=== PATIENT | female | born 1975 | race Caucasian/White ===

== ENCOUNTER 2018-02-12 07:36 | Emergency (ER) | payer MEDICAID ==
[~2018-02-12] VITALS: Ht 175.3 cm; Wt 93.2 kg
[2018-02-12 07:42] VITALS: Ht 175.3 cm; Wt 93.2 kg
[2018-02-12 08:38] VITALS: BP 118/72
== END 2018-02-12 08:38 | disposition home or self-care (01) ==
LOC: D.ER 07:36
DX: S40.011A Contusion of right shoulder, initial encounter (principal); X58.XXXA Exposure to other specified factors, initial encounter; Y93.89 Activity, other specified; Y92.019 Unspecified place in single-family (private) house as the place of occurrence of the external cause; L02.611 Cutaneous abscess of right foot; F17.200 Nicotine dependence, unspecified, uncomplicated

== ENCOUNTER 2018-04-25 11:47 | Day surgery (SDC) | payer MEDICAID ==
[2018-04-22 11:25] LABS: BASOPHILS 0.5 % (0-2); HEMATOCRIT 42.9 % (36.0-48.0); HEMOGLOBIN 14.3 g/dL (12-16); IMMATURE GRANULOCYTES 0.3 % (0-5); LYMPHOCYTES 32.7 % (15-50); MCH 30.9 pg (26.0-34.0); MCHC 33.3 g/dL (31.0-37.0); MCV 92.7 fL (80.0-100.0); NEUTROPHILS 55.5 % (40-80); PLATELET COUNT 302 10x3/uL (130-400); RBC 4.63 10x6/uL (4.00-5.40); WBC 7.8 10x3/uL (4.8-10.8)
[2018-04-22 11:41] LABS: CALC OSMOLALITY 281 mosm/kg (275-300); CALCIUM 8.8 mg/dL (8.5-10.1); CARBON DIOXIDE 25.7 mmol/L (21.0-32.0); CHLORIDE - SERUM 105 mmol/L (98-107); CREATININE - SERUM 0.8 mg/dL (0.6-1.3); GLUCOSE 106 mg/dL (74-106); POTASSIUM - SERUM 4.3 mmol/L (3.5-5.1); SODIUM 141 mmol/L (136-145); UREA NITROGEN 15 mg/dL (7-18); eGFR NON AFRICAN AMERICAN 83 mL/min (90-120)
[~2018-04-25] VITALS: Ht 152.4 cm; Wt 99.8 kg
[2018-04-25] VITALS (11 sets, daily range): BP systolic 104–120; BP diastolic 63–76; Ht 152.4 cm; Wt 99.8 kg
[2018-04-25] MEDS ORDERED: VITAMIN D250000 UNIT PO (12:38)
[2018-04-25] MEDS ORDERED: BC (12:39)
[2018-04-25 13:07] LABS: HCG URINE NEGATIVE (NEGATIVE)
--- NOTE | 2018-04-25 20:29 | NUR ---
1930 PT REC'D TO ROOM AT THIS TIME FROM RECOVERY. IV SITE TO THE LFT HAND. SITE CLEAR AND PATENT AT THIS TIME. LUNGS CLEAR BOWERL SOUND PRESENT BUT HYPOACTIVE. INCISIONS X3 TO ABDOMEN. NO DRAINAGE NOTED. PT ALERT AND ORIENTED. KEARNEY CATH PATNET WITH YELLOW URINE NOTED. PT ORIENTED TO ROOM AND CALL LIGHT. SIDERILS UP FOR SAFETY X2. CALL LIGHT IN PT REACH. Bharat NASCIMENTO RN
--- NOTE | 2018-04-25 20:30 | NUR ---
SITTING UP IN BED TALKING TO SPOUSE. VSS. ENCOURAGED DEEP BREATHING AND DONE BY PT. PT REQUESTED CHICKEN BROTH AND SPRITE. CHICKEN BROTH AND SPRITE GIVEN. PT ATE ORANGE JELLO AND HAD ICE CHIPS AT 1955 AND TOLERATED WELL.
--- NOTE | 2018-04-25 20:33 | NUR ---
2019 PT VISITING WITH FAMILY AT THIS TIME CLEAR LIQUID OFFERED AT THIS TIME. STATES THAT PAIN IS 7. LAUGHING AND SOCIALICING WITH FAMILY. WILL CONTINUE TO MONITOR. VSS. SIDERAILS UP FOR SAFETY X2. CALL LIGHT IN PT REACH. Bharat NASCIMENTO RN
--- NOTE | 2018-04-25 21:34 | NUR ---
SPOKE WITH DR AMAYA REGARDING PT; ORDERS RECEIVED TO NORMALIZE PT, OKAY TO DC KEARNEY, CONVERT IV TO SALINE LOCK, AMBULATE IN HALLS, ADVANCE DIET TOLERATED TO REGULAR DIET BY BREAKFAST, CONFIRMED VIA TORB AND RELAYED TO Nadya NASCIMENTO RN WHO IS PCN FOR PT.
--- NOTE | 2018-04-25 22:01 | NUR ---
IV IN LEFT HAND CONVERTED TO SALINE LOCK AND SECURED WITH TAPE, KEARNEY CATHETER DC'D, PT OOB AND AMBULATORY IN ROOM, TOLERATING PO FLUIDS WELL WITHOUT N/V, DENIES OTHER NEEDS AT THIS TIME. RESP EVEN AND UNLABORED, FAMILY TO ROOM, CONTINUE TO MONITOR.
--- NOTE | 2018-04-25 22:21 | NUR ---
PT CALLS, C/O PAIN, RATES 10/03, REQUESTS MEDICATION. 1 TAB PERCOCET 5 PROVIDED TO PT AT THIS TIME. ADDITIONAL SPRITE AND JELLOW PROVIDED TO PT. PT DENIES ANY FURTHER NEEDS. BED IN LOW POSITION, SIDE RAILS UP TIMES 2, CALL LIGHT AND PHONE IN REACH. FAMILY TIMES 3 REMAINS AT PT BS FOR SUPPORT AND ASSISTANCE. WILL CONT TO MONITOR PT STATUS.
--- NOTE | 2018-04-25 23:30 | NUR ---
1130 VITAL SIGNS STABLE AT THIS TIME. DEEP BREATHING AND COUGHING DONE AT THIS TIME. PT PAIN LEVEL STATES 5 DROWSY AT THIS TIME. PT PROVIDED WITH PUDDING AT THIS TIME. NO NAUSEA/VOMITING NOTED. SALINE LOCK TO THE LEFT HAND. SCDS. IN PLACE. Bharat NASCIMENTO RN
--- NOTE | 2018-04-26 00:43 | NUR ---
0040 PT COMPLAINS OF NAUSEA AND WAS MEDICATED WITH PHENERGAN 25 MG IM. WILL MONITOR PROGRESS. Bharat NASCIMENTO RN
[2018-04-26 03:40] VITALS: BP 126/78
--- NOTE | 2018-04-26 03:41 | NUR ---
0340 PT RECEIVED IN BED AWAKE AT THIS TIME. DENIES PAIN. SALINE LOCK TO THE LFT HAND. INCISIONS X3 TO THE ABDOMEN WITHOUT S/S OF INFECTION NOTED. MEDICATED THIS SHIFT X1 FOR NAUSEA WITH RELIEF NOTED. TOLERATING REGULAR DIET THIS SHIFT. NO ACUTE DISTRESS NOTED. AFEBRILE. SIDERAIL UP FOR SAFETY X2. CALL LIGHT INM EASY REACH. Bharat NASCIMENTO RN
--- NOTE | 2018-04-26 05:42 | NUR ---
0540 PT ASLEEP AT THIS TIME. RESTING WELL. NO ACUTE DSITRESS NOTED. Bharat NASCIMENTO RN
--- NOTE | 2018-04-26 07:06 | NUR ---
BEDSIDE REPORT RCVD. PT RESTING WITH EYES CLOSED, RESP EVEN & UNLABORED. PT LEFT UNDISTURBED AT THIS TIME.
[2018-04-26 08:30] VITALS: BP 103/58
--- NOTE | 2018-04-26 08:30 | NUR ---
PT SITTING UP IN BED WITH GUESTS IN ROOM X2. REGULAR MEAL TRAY SERVED. PT C/O PAIN 01/03 IN ABD, SPECIFICALLY IN UPPER ABD CONSISTENT WITH GAS PAINS. EDU PT ON AMB IN HALLS. PT STATES "I'VE BEEN TO THE BATHROOM SEVERAL TIMES." ADV PT THAT AMB IN HALLS ALLOWS MORE DISTANCE TO GET GAS TO MOVE AND AIDS IN BOWEL ACTIVITY. PT VERBALIZES UNDERSTANDING. NEURONTIN 300 MG X1 TAB AND SCHEDULED TORADOL 10 MG X1 TAB GIVEN AT THIS TIME. SHIFT ASSESSMENT COMPLETED. HR-RRR, PPP, SL TO LT HAND REPORTEDLY "CAME OUT." NO BLEEDING NOTED TO SITE AT THIS TIME. BREATH SOUNDS CLEAR & UNLABORED X2, BOWEL SOUNDS ACTIVE X4. LAP INCISION NOTED AT UMBILICUS, LLQ AND RLQ. C/D/I WITHOUT ERYTHEMA OR EDEMA NOTED TO SITES. PT REPORTS "SPOTTING" WHEN VOIDING, BUT NO CONSISTENT VAGINAL BLEEDING. DENIES PASSING GAS AT THIS TIME. DENIES N/V. DENIES FURTHER NEEDS AT THIS TIME. BED LOW, WHEELS LOCKED, CALL LIGHT AND PHONE WITHIN REACH, SIDE RAILS UP X2.
--- NOTE | 2018-04-26 09:12 | NUR ---
PAIN REASSESSMENT COMPLETE. PT RATES PAIN 6/10 AND IS SITTING UP IN BED SCROLLING ON CELL PHONE. OFFERED PERCOCET. PT DESIRES TO TAKE 1 TAB OF PERCOCET 5/325MG AT THIS TIME. SAME PROVIDED. ADV PT TO AMB IN HALLS X3 TODAY TO AVOID GAS PAINS. PT VERBALIZED UNDERSTANDING AND IS AGREEABLE. NO FURTHER NEEDS VOICED AT THIS TIME.
--- NOTE | 2018-04-26 10:33 | OP ---
PATIENT NAME: PHILL ANDREWS MEDICAL RECORD: [id number] :77 [id number] ADMISSION DATE: SURGEON: FROYLAN AMAYA MD DATE OF OPERATION: 04/25/2018 PREOPERATIVE DIAGNOSES: 1. Dysfunctional uterine bleeding. 2. Dysmenorrhea. 3. Hematometrium. POSTOPERATIVE DIAGNOSES: 1. Dysfunctional uterine bleeding. 2. Dysmenorrhea. 3. Hematometrium. PROCEDURE: 1. Diagnostic laparoscopy. 2. Lysis of adhesions. 3. Laparoscopically assisted vaginal hysterectomy with bilateral salpingo-oophorectomy. SURGEON: Froylan Amaya MD ANESTHESIOLOGIST: Dr. Ellison. GLASS PRESSER: Crispin Pierre. ANESTHESIA: General. FINDINGS: Uterus is enlarged and boggy. Uterus and ovaries bilaterally are unremarkable. What was visualized of the abdominal anatomy and cervical anatomy was unremarkable. SPECIMENS REMOVED: Uterus with cervix, bilateral tubes and ovaries. SPECIMEN DISPOSITION: All specimens to pathology. ESTIMATED BLOOD LOSS: 500 cc. FLUIDS: 2 liters lactated Ringer's. URINE OUTPUT: 550 cc of clear urine. COMPLICATIONS: None. DRAINS: Patton to gravity. INDICATIONS: The patient is a 43-year-old female status post uterine ablation. The patient has continued bleeding irregularities and severe dysmenorrhea. On ultrasound, large fluid cavity contained within the uterus. These findings with history consistent with possible hematometrium. DESCRIPTION: The patient is consented for bilateral salpingo-oophorectomy and total hysterectomy. OPERATIVE REPORT [id number] PHILL ANDREWS DESCRIPTION OF PROCEDURE: After informed consent was assured, the patient was taken to the operating room where anesthetic was obtained. [facility] and prepped and draped. A speculum was introduced into the vagina and a uterine manipulator placed. Attention was now directed in to the abdomen after prepping and draping where an incision was made at the umbilicus to accommodate a 5-mm trocar, which was inserted without difficulty. Pneumoperitoneum was developed. Immediately, adhesions were noted of the anterior peritoneum to the anterior surface of the uterus. Both ovaries and tubes were unremarkable and uterus appears as stated above. Attention was directed to the right adnexa where the attachment of the right ovary to the pelvic sidewall has the dissection began underneath the right tube and above the ovary. The dissection was carried out underneath the right tube across the uteroovarian ligament and down across the round ligament. The anterior leaf of the broad ligament was opened to the midline. Dense adhesions were encountered at the bladder and these are taken down to the midline. Attention is directed out to the posterior aspect of the ligament where the connective tissue was taken down and the vessels of the right side skeletonized. The vessels were compressed, coagulated, and then . Attention was now directed to the left. The left ovary and tube was elevated and using coagulation cutter, the vessels of the infundibulopelvic ligament were compressed, coagulated, and . The dissection was carried down underneath the ovary and tube across the round ligament and the anterior leaf of the broad ligament was opened. As dissection was carried out towards the lower segment again dense adhesions were encountered and these were taken down with both coagulation cutter and Harmonic scalpel. Once the bladder flap was mobilized, attention is directed back to the left vascular bundle where the vessels were identified compressed, coagulated, and . With uterine manipulation being limited by the size of the uterus and difficulty in reaching the cup, it was decided to move to complete the procedure for the vaginal approach. The patient's legs were positioned and a speculum introduced the vagina. The cervix grasped with Hearn tenaculums and placed on traction. The cervix was circumferentially incised with Bovie cautery. The posterior cul-de-sac was entered with Talley scissors and a stitch applied to the peritoneum. The opening is widened and a long-billed weighted speculum was introduced. Nida-Van Wert clamps used to isolate the right and left uterosacral ligaments. These pedicles were mobilized and stick tied. Dissection anteriorly was completed with both Bovie cautery and Metzenbaum scissors. Once the anterior pouch was entered and the [place] retractor was placed here to deflect the bladder above the area of dissection. The remaining portions of the attachment of the uterus to the cardinal ligaments were serially clamped, cut and tied. Once the uterus fills the hole of the vagina, a scalpel was used to morcellate and collapse the uterus until it is removed from the pelvis. The vaginal vault was now closed in an anterior to posterior fashion with interrupted [id number] Vicryl stitches. Once this was completed, pneumoperitoneum was reestablished and the pelvis irrigated. Bleeding vessels on the right and left peritoneum were identified, collapsed and cauterized. The right ovary which was previously described attached to the right pelvic sidewall was now dissected free with Harmonic scalpel and coagulation cutter. Once the ovary was mobilized, infundibulopelvic ligaments were compressed, coagulated, and . The ovary and portion of tube was placed in an Endobag and removed. Pelvis again was irrigated and irrigant removed. Given the broad range of dissection of the adhesions anteriorly, the raw edges are covered with Surgicel powder. After completion of this process, the pneumoperitoneum was released. Trocars were removed and the skin sites were approximated with subcuticular stitch. Dermabond was applied. Sponge, lap, and needle counts correct times 2 at the close of this procedure. OPERATIVE REPORT [id number] PHILL ANDREWS TRANSINT:[id number] Voice Confirmation ID: [id number] DOCUMENT ID: [id number] FROYLAN AMAYA MD at 1033 CC: [id number] DICTATION DATE: 04/25/181806 HYGIENE TEACHER: 04/26/18 0203 [facility] [address] [place] [address]
[2018-04-26 10:49] LABS: BASOPHILS 0 % (0-2); EOSINOPHILS 0.1 % (0-7); HEMATOCRIT 37.8 % (36.0-48.0); HEMOGLOBIN 12.4 g/dL (12-16); IMMATURE GRANULOCYTES 0.2 % (0-5); LYMPHOCYTES 15.1 % (15-50); MCH 30.7 pg (26.0-34.0); MCHC 32.8 g/dL (31.0-37.0); MCV 93.6 fL (80.0-100.0); MEAN PLATELET VOLUME 10.7 fL (7.4-10.4); MONOCYTES 9.9 % (2-11); NEUTROPHILS 74.7 % (40-80); PLATELET COUNT 310 10x3/uL (130-400); RBC 4.04 10x6/uL (4.00-5.40); RDW 13.9 % (11.5-14.5); WBC 11.2 10x3/uL (4.8-10.8)
--- NOTE | 2018-04-26 11:17 | NUR ---
CALL RCVD FROM DR AMAYA. REPORT GIVEN ON LAB RESULT. T/O RCVD TO D/C PT HOME WITH INST
--- NOTE | 2018-04-26 11:43 | NUR ---
RN TO BEDSIDE FOR D/C INSTRUCTIONS. PT OFF UNIT AT THIS TIME. ADV FAMILY IN ROOM TO HAVE PT RING CALL LIGHT WHEN BACK FOR D/C INST.
--- NOTE | 2018-04-26 11:54 | NUR ---
PT BACK TO ROOM. RN TO BEDSIDE. D/C INSTRUCTIONS EXPLAINED, SIGNED, AND WITNESSED. PRESCRIPTIONS, FOLLOW UP APPT AND COPY OF INSTRUCTIONS PROVIDED TO PT. PT REQUESTS TO STAY UNTIL AFTER LUNCH AND TO HAVE PERCOCET BEFORE D/C TO HOME. ADV PT THAT NEXT PERCOCET WILL BE AVAILABLE AT 1315. PT VERBALIZED UNDERSTANDING. DENIES FURTHER QUESTIONS OR CONCERNS AT THIS TIME. WILL CONTINUE TO MONITOR PRN.
--- NOTE | 2018-04-26 12:49 | NUR ---
PERCOCET 5/325MG X1 TAB GIVEN FOR PAIN RATED 7/10. PT READY TO D/C TO HOME. PT TRANSPORTED OFF UNIT VIA W/C TO AWAITING RIDE.
--- NOTE | 2018-04-29 17:16 | DS ---
PATIENT:PHILL ANDREWS :77 MEDICAL RECORD: [id number] DISCHARGE SUMMARY ADMISSION DATE: 04/25/18 DISCHARGE DATE: 04/26/18 PREOPERATIVE DIAGNOSES: 1. Dysmenorrhea. 2. Dysfunctional uterine bleeding. 3. Hematometrium. DISCHARGE DIAGNOSES: 1. Dysmenorrhea. 2. Dysfunctional uterine bleeding. 3. Hematometrium. PROCEDURE: Laparoscopically assisted vaginal hysterectomy. ATTENDING: Dr. Amaya HISTORY OF PRESENT ILLNESS: See the H&P in the chart. SUMMARY OF HOSPITALIZATION: The patient was admitted to the hospital and underwent procedure without difficulty. By the hospital day #1, the patient has already normalized, voiding without difficulty, and tolerating a regular diet. The patient has adequate pain control. The patient will be discharged on Percocet, Mobic, and Neurontin. The patient has been given a followup appointment in 2 weeks. Postoperative precautions have been reviewed with the patient at length. The patient will be discharged home, pending drawing of hematocrit. TRANSINT:[id number] Voice Confirmation ID: [id number] DOCUMENT ID: [id number] SUGEY AMAYA MD at 1716 CC: [id number] DICTATION DATE: 04/26/18 1034 HEAD OF OPERATION AND LOGISTICS: 04/26/18 2229 [facility] 04/26/[address] [address]
== END 2018-04-26 12:49 | disposition home or self-care (01) ==
LOC: D.OPS 11:47 → D.PAN 13:10 → D.OPS 13:30 → D.LD 19:17 → D.OPS 04-26 12:49
PROVIDERS: Obstetrics & Gynecology
DX: N93.8 Other specified abnormal uterine and vaginal bleeding (principal); N94.6 Dysmenorrhea, unspecified; N85.7 Hematometra; N83.01 Follicular cyst of right ovary; Z01.812 Encounter for preprocedural laboratory examination

== ENCOUNTER 2018-05-06 17:57 | Emergency (ER) | payer MEDICAID ==
[~2018-05-06] VITALS: Ht 175.3 cm; Wt 97.7 kg
[~2018-05-06 17:57] MED LIST: BC; VITAMIN D250000 UNIT PO
[2018-05-06 18:23] VITALS: Ht 175.3 cm; Wt 97.7 kg
[2018-05-06] MEDS ORDERED: MOBIC7.5 MG (18:24)
[2018-05-06] MEDS ORDERED: ESTRACE 0.5 MG0.5 MG PO (18:25)
[2018-05-06 19:49] LABS: BASOPHILS 0.4 % (0-2); EOSINOPHILS 6.9 % (0-7); HEMATOCRIT 40.3 % (36.0-48.0); HEMOGLOBIN 13.1 g/dL (12-16); IMMATURE GRANULOCYTES 0.4 % (0-5); LYMPHOCYTES 31.5 % (15-50); MCH 30.3 pg (26.0-34.0); MCHC 32.5 g/dL (31.0-37.0); MCV 93.3 fL (80.0-100.0); MEAN PLATELET VOLUME 10.8 fL (7.4-10.4); MONOCYTES 5.3 % (2-11); NEUTROPHILS 55.5 % (40-80); PLATELET COUNT 344 10x3/uL (130-400); RBC 4.32 10x6/uL (4.00-5.40); RDW 13.5 % (11.5-14.5)
[2018-05-06 20:18] LABS: ALBUMIN 3.6 g/dL (3.4-5.0); ANION GAP 12.8 mmol/L (8-16); BILIRUBIN - TOTAL 0.22 mg/dL (0.2-1.3); CALCIUM 9.6 mg/dL (8.5-10.1); CARBON DIOXIDE 27.8 mmol/L (21.0-32.0); CREATININE - SERUM 0.9 mg/dL (0.6-1.3); POTASSIUM - SERUM 3.6 mmol/L (3.5-5.1); PROTEIN - SERUM 8.2 g/dL (6.4-8.2)
[2018-05-06 21:04] LABS: INR 0.86 (0.85-1.17); PROTIME 11.2 SECONDS (11.6-15.0)
[2018-05-06 21:06] LABS: APTT 25.2 SECONDS (22.8-39.4)
[2018-05-06 21:38] LABS: APPEARANCE HAZY (CLEAR); COLOR YELLOW (YELLOW); SPECIFIC GRAVITY 1.015 (1.005-1.020)
[2018-05-06 21:39] LABS: BILIRUBIN NEGATIVE (NEGATIVE); GLUCOSE NEGATIVE (NEGATIVE); KETONE NEGATIVE (NEGATIVE); NITRITE NEGATIVE (NEGATIVE); PROTEIN TRACE mg/dL (NEGATIVE); UROBILINOGEN NORMAL (NORMAL)
[2018-05-06 21:40] LABS: BACTERIA FEW /hpf (NONE SEEN); EPITHELIAL CELLS 0-5 /hpf (0-5); WHITE CELLS - URINE 0-5 /hpf (0-5)
[2018-05-06 21:41] LABS: RED CELLS - URINE >50 /hpf (0-5)
[2018-05-06] MEDS ORDERED: ZOFRAN ODT4 MG/UDTAB PO (22:50)
[2018-05-06 23:03] VITALS: BP 129/66
== END 2018-05-06 23:03 | disposition home or self-care (01) ==
LOC: D.ER 17:57
PROVIDERS: Family Medicine
DX: N99.820 Postprocedural hemorrhage of a genitourinary system organ or structure following a genitourinary system procedure (principal); F17.200 Nicotine dependence, unspecified, uncomplicated

== ENCOUNTER 2018-06-18 07:48 | Emergency (ER) | payer MEDICAID ==
[~2018-06-18] VITALS: Ht 175.3 cm; Wt 97.7 kg
[~2018-06-18 07:48] MED LIST changes: +ESTRACE 0.5 MG0.5 MG PO; +MOBIC7.5 MG; +ZOFRAN ODT4 MG/UDTAB PO
[2018-06-18 07:57] VITALS: BP 149/80; Ht 175.3 cm; Wt 97.7 kg
[2018-06-18] MEDS ORDERED: ACETAMINOPHEN500 M1 PO (08:25)
[2018-06-18] MEDS ORDERED: CYCLOBENZAPRINE10 MG PO (08:25)
[2018-06-18] MEDS ORDERED: KEFLEX500 MG PO (08:25)
[2018-06-18] MEDS ORDERED: SULFAMETHOXAZOL1 TA3 PO (08:25)
[2018-06-18] MEDS ORDERED: MACROBID100 MG PO (08:25)
== END 2018-06-18 08:59 | disposition home or self-care (01) ==
LOC: D.ER 07:48
DX: L73.9 Follicular disorder, unspecified (principal); L03.031 Cellulitis of right toe; F17.200 Nicotine dependence, unspecified, uncomplicated

== ENCOUNTER 2018-12-17 07:54 | Emergency (ER) | payer MEDICAID ==
[~2018-12-17] VITALS: Ht 175.3 cm; Wt 100.0 kg
[~2018-12-17 07:54] MED LIST changes: +ACETAMINOPHEN500 M1 PO; +CYCLOBENZAPRINE10 MG PO; +KEFLEX500 MG PO; +MACROBID100 MG PO; +SULFAMETHOXAZOL1 TA3 PO
[2018-12-17 08:00] VITALS: Ht 175.3 cm; Wt 100.0 kg
[2018-12-17 08:19] LABS: BILIRUBIN NEGATIVE (NEGATIVE); COLOR STRAW (YELLOW); GLUCOSE NEGATIVE (NEGATIVE); KETONE NEGATIVE (NEGATIVE); NITRITE NEGATIVE (NEGATIVE); PROTEIN NEGATIVE (NEGATIVE); SPECIFIC GRAVITY 1.015 (1.005-1.020); UROBILINOGEN NORMAL (NORMAL)
[2018-12-17 08:20] LABS: APPEARANCE SL CLDY (CLEAR)
[2018-12-17 08:21] LABS: BACTERIA MODERATE /hpf (NONE SEEN); EPITHELIAL CELLS 0-5 /hpf (0-5); RED CELLS - URINE 0-5 /hpf (0-5)
[2018-12-17] MEDS ORDERED: PHENAZOPYRIDIN200 MG PO (08:59)
[2018-12-17] MEDS ORDERED: MACROBID100 MG PO (08:59)
[2018-12-17 09:03] VITALS: BP 132/68
== END 2018-12-17 09:05 | disposition home or self-care (01) ==
LOC: D.ER 07:54
PROVIDERS: Emergency Medicine
DX: N39.0 Urinary tract infection, site not specified (principal)

== ENCOUNTER 2019-02-01 10:29 | Emergency (ER) | payer MEDICAID ==
[~2019-02-01] VITALS: Ht 175.3 cm; Wt 100.0 kg
[~2019-02-01 10:29] MED LIST changes: +PHENAZOPYRIDIN200 MG PO
[2019-02-01 10:34] VITALS: BP 156/90; Ht 175.3 cm; Wt 100.0 kg
--- NOTE | 2019-02-01 11:06 | NUR ---
DR MONTERO NOTIFIED AND REVIEWED PATIENT'S BEHAVIOR AND ASSESSMENT RESULTS. PT IS A LOW RISK PER DR MONTERO. DR MONTERO STATED TO GIVE RESOURCES TO PT AT TIME OF DISCHARGE. NO FURTHER ORDERS AT THIS TIME. RESOURCES REVIEWED WITH PT AND SHE VERBALIZED UNDERSTANDING. PT VEHEMENTLY DENIES ANY SUICIDAL THOUGHTS AT THIS TIME.
[2019-02-01] MEDS ORDERED: MEDROL DOSE PACK4 MG PO (12:27)
== END 2019-02-01 13:46 | disposition home or self-care (01) ==
LOC: D.ER 10:29
DX: R21 Rash and other nonspecific skin eruption (principal)

== ENCOUNTER 2019-04-27 16:23 | Emergency (ER) | payer MEDICAID ==
[~2019-04-27] VITALS: Ht 175.3 cm; Wt 100.0 kg
[~2019-04-27 16:23] MED LIST changes: +MEDROL DOSE PACK4 MG PO
[2019-04-27 16:30] VITALS: BP 134/87; Ht 175.3 cm; Wt 100.0 kg
[2019-04-27] MEDS ORDERED: KEFLEX500 MG PO (18:16)
[2019-04-27] MEDS ORDERED: ULTRAM50 MG PO (18:16)
== END 2019-04-27 18:39 | disposition home or self-care (01) ==
LOC: D.ER 16:23
DX: L60.0 Ingrowing nail (principal); L03.031 Cellulitis of right toe; Z72.0 Tobacco use